=== PATIENT | male | born 1960 | race Caucasian/White ===

== ENCOUNTER 2020-02-13 08:08 | Day surgery (SDC) | payer OTHER ==
[~2020-02-13 08:08] MED LIST: CEPH500 PO; HYDACE5 PO; IBUP600 PO; OXYACE5T PO; RXOXYACE PO; SULTRISS PO
[2020-02-13] MEDS ORDERED: SILD50TA PO (08:27)
[2020-02-13] MEDS ORDERED: IBUP800 PO (08:27)
[2020-02-13] MEDS ORDERED: Masophen500 MG (08:28)
--- NOTE | 2020-02-13 08:28 | NUR ---
PATIENT HERE FOR CTA. STATES HE HAS BEEN FASTING SINCE 2100 YESTERDAY.
[2020-02-13] MEDS ORDERED: Aspir 8181 MG PO (08:32)
--- NOTE | 2020-02-13 08:46 | NUR ---
PATIENT SHOWING 1-2 PVCs per 6 second 3-lead strip. Spoke to [place] who called Dr. Roldan (automobile radiator mechanic). Dr. Roldan cancelled scheduled CTA due to frequent PVCs. Patient denies c/o at this time. Patient instructed to follow-up with his automobile radiator mechanic.
--- NOTE | 2020-02-13 09:05 | NUR ---
0900- SPOKE TO DR [facility]CCORM[employer]S [employer] MACHINE [employer]PERATOR [employer]UL[employer]ER ABOUT TODAY'S CTA CANCELLATION AND FAXED COPY OF 3-LEAD EKG.
== END 2020-02-13 08:45 | disposition home or self-care (01) ==
LOC: ORD 08:08 → CT 08:08 → ORD 08:30 → CT 09:00
DX: R94.39 Abnormal result of other cardiovascular function study (principal); I49.3 Ventricular premature depolarization; I10 Essential (primary) hypertension; N52.9 Male erectile dysfunction, unspecified; J30.2 Other seasonal allergic rhinitis; N40.1 Benign prostatic hyperplasia with lower urinary tract symptoms; N13.8 Other obstructive and reflux uropathy; M54.2 Cervicalgia; Z79.82 Long term (current) use of aspirin; Z79.899 Other long term (current) drug therapy; Z88.0 Allergy status to penicillin; Z88.1 Allergy status to other antibiotic agents; Z53.9 Procedure and treatment not carried out, unspecified reason

== ENCOUNTER 2020-03-12 07:41 | Day surgery (SDC) | payer OTHER ==
[~2020-03-12] VITALS: Ht 167.6 cm; Wt 77.0 kg
[~2020-03-12 07:41] MED LIST changes: +Aspir 8181 MG PO; +IBUP800 PO; +Masophen500 MG; +SILD50TA PO
--- NOTE | 2020-03-12 12:36 | NUR ---
PT AMBULATES TO RESTROOM AND BACK WITHOUT DIFF.
--- NOTE | 2020-03-12 12:53 | NUR ---
PT VERBALIZES UNDERSTANDING WRITTEN AND VERBAL ORDERS. VSS. NADN. R FEMORAL SITE REMAINS CLEAR. CALL LIGHT WITHIN REACH.
--- NOTE | 2020-03-12 13:11 | NUR ---
PT DRESSES SELF WITHOUT DIFF. R FEMORAL SITE REMAINS CLEAR. NO BLEEDING OR HEMATOMA NOTED. VSS. NADN. PT DENIES PAIN OR NEEDS. PT IV DC'D.C ATH INTACT. PRESSURE DSG APPLIED. PT DC TO HOME VIA WC BY S/O.
== END 2020-03-12 13:15 | disposition home or self-care (01) ==
LOC: MHTC 07:41
PROC: B201YZZ Plain Radiography of Multiple Coronary Arteries using Other Contrast (ICD-10-PCS; principal; 2020-03-12)
PROC: 4A023N7 Measurement of Cardiac Sampling and Pressure, Left Heart, Percutaneous Approach (ICD-10-PCS; principal; 2020-03-12)
DX: I49.3 Ventricular premature depolarization (principal); I10 Essential (primary) hypertension; Z79.899 Other long term (current) drug therapy; Z79.82 Long term (current) use of aspirin; Z88.0 Allergy status to penicillin; Z88.1 Allergy status to other antibiotic agents
CPT/HCPCS: 93458; 99152; 99153; C1769; C1894; J2250; J3010; J7030; Q9967

== ENCOUNTER 2024-04-30 09:31 | Emergency (ER) | payer OTHER ==
[~2024-04-30] VITALS: Ht 170.2 cm; Wt 74.4 kg
[2024-04-30 10:08] VITALS: BP 144/80
[2024-04-30] MEDS ORDERED: BENZ100A PO ×2 (11:23→11:24)
== END 2024-04-30 11:26 | disposition home or self-care (01) ==
LOC: ER 09:31
DX: J06.9 Acute upper respiratory infection, unspecified (principal); J40 Bronchitis, not specified as acute or chronic; Z88.0 Allergy status to penicillin; Z88.1 Allergy status to other antibiotic agents
CPT/HCPCS: 71046; 99283-25